=== PATIENT | female | born 2000 | race Caucasian/White ===

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

== ENCOUNTER 2021-02-07 23:23 | Emergency (ER) | payer MEDICAID ==
[~2021-02-07 23:23] MED LIST: NAPR-1071 PO
[2021-02-07 23:28] VITALS: BP 149/68
--- NOTE | 2021-02-07 23:39 | ED EENT ---
History of Present Illness General Chief Complaint: Dental Problems/Pain Stated Complaint: DENTAL PAIN Source: patient Exam Limitations: no limitations History of Present Illness Date Seen by Provider: Feb 07, 2021 Time Seen by Provider: 23:20 Initial Comments Patient presents ER by private conveyance from home with chief complaint of intense pain for over the past 2 to 3 days and swelling associated with a fractured tooth in her left upper premolar. She says she broke it about a week ago and a couple days ago started having pain from it. She called and has a dental appointment on Monday. She is not on antibiotics. She says she has to have an EpiPen for amoxicillin allergy. No other significant medical history. She tried Tylenol and ibuprofen unsuccessfully. Allergies and Home Medications Allergies Coded Allergies: amoxicillin (Verified Allergy, Unknown, 11/21/20) clavulanic acid (Verified Allergy, Unknown, 11/21/20) Home Medications Clindamycin HCl 150 Mg Capsule, 450 MG PO TID Prescribed by: VERNON SANCHEZ on 02/07/212341 Naproxen 500 Mg Tablet, 500 MG PO BID Prescribed by: HANK GIVENS on 11/21/202032 [viscous lidocaine] 2% TUBE, 5 ML TOP Q4H PRN for PAIN-BREAKTHROUGH Prescribed by: VERNON SANCHEZ on 02/07/212341 Patient Home Medication List Home Medication List Reviewed: Yes Review of Systems Review of Systems Constitutional: No chills, No diaphoresis Eyes: Denies Blindness, Denies Drainage Ears: Denies Dizziness, Denies Pain Nose: denies clots, denies congestion Mouth: see HPI Throat: denies pain, denies swelling, denies discharge All Other Systems Reviewed Negative Unless Noted: Yes Past Zinuygr-Dflezk-Lqsjnh Hx Patient Social History Alcohol Use: Denies Use Smoking Status: Never a Smoker 2nd Hand Smoke Exposure: No Recent Hopitalizations: No Seasonal Allergies Seasonal Allergies: No Past Medical History Surgeries: No Respiratory: No Cardiac: No Neurological: No Genitourinary: No Gastrointestinal: No Musculoskeletal: No Endocrine: No HEENT: No Cancer: No Psychosocial: No Integumentary: No Blood Disorders: No Physical Exam Vital Signs Vital Signs - First Documented 02/07/21 23:28 Temp 36.5 Pulse 65 Resp 16 B/P (MAP) 149/68 (95) Pulse Ox 100 O2 Delivery Room Air Height, Weight, BMI Height: '" Weight: lbs. oz. kg; 46.00 BMI Method: General Appearance: WD/WN, mild distress Eyes: bilateral eye normal inspection, bilateral eye PERRL, bilateral eye EOMI Ears: bilateral ear auricle normal, bilateral ear canal normal Nose: normal inspection; No active bleeding Mouth/Throat: other (Left upper premolar fracture with minimal gingival swelling and no pointing or obvious source of abscess to drain) Neck: full range of motion, normal inspection Cardiovascular: normal peripheral pulses, regular rate, rhythm Neurologic/Psychiatric: alert, oriented x 3 Progress/Results/Core Measures Results/Orders My Orders Orders - VERNON SANCHEZ Lidocaine 2% Viscous 15 Ml (Xylocaine Vi (02/07/21 23:45) Ketorolac Injection (Toradol Injection) (02/07/21 23:45) Medications Given in ED Current Medications Medications Dose Ordered Sig/Anirudh Route Start Time Stop Time Status Last Admin Dose Admin Ketorolac Tromethamine 60 mg ONCE ONCE IM 02/07/21 23:45 02/07/21 23:45 DC 02/07/21 23:36 60 MG Lidocaine HCl 5 ml ONCE ONCE PO 02/07/21 23:45 02/07/21 23:45 DC 02/07/21 23:36 5 ML Vital Signs/I&O 02/07/21 02/07/21 23:28 23:44 Temp 36.5 36.5 Pulse 65 65 Resp 16 16 B/P (MAP) 149/68 (95) Pulse Ox 100 100 O2 Delivery Room Air Room Air Progress Progress Note : Time: 23:35 Progress Note Toradol, viscous lidocaine, clindamycin. Departure Impression Primary Impression: Dental abscess Additional Impression: Fracture, tooth Qualified Codes: S02.5XXA - Fracture of tooth (traumatic), initial encounter for closed fracture Disposition: 01 HOME, SELF-CARE Condition: Stable Departure-Patient Inst. Decision time for Depature: 23:32 Referrals: WINTER KOLB MD (PCP/Family) Primary Care Physician Patient Instructions: Fractured Tooth, Dental Pain (DC) Add. Discharge Instructions: Apply warm compresses across her face to reduce swelling. Tylenol/acetaminophen 1000 mg every 8 hours as necessary for pain. Ibuprofen/Motrin 800 mg every 8 hours as necessary for pain. Viscous lidocaine 5 mL over some gauze applied directly to the tooth every 4 hours as necessary for pain control. Clindamycin 3 capsules 3 times a day with food for the next week to reduce swelling and pain. Expect to see some results by day 3 or 4 of antibiotics. Keep your follow-up appointment with the dentist. You may also use topical Orajel and other lujl-avl-tephkpd dental pain solutions. All discharge instructions reviewed with patient and/or family. Voiced understanding. Scripts Clindamycin HCl (Clindamycin HCl) 150 Mg Capsule 450 MG PO TID for 7 Days, #63 CAP 0 Refills Prov: VERNON SANCHEZ 02/07/21 [viscous lidocaine] 2% TUBE No Conflict Check 5 ML TOP Q4H PRN for PAIN-BREAKTHROUGH for 3 Days, #100 ML 0 Refills Prov: VERNON SANCHEZ 02/07/21 VERNON SANCHEZ Feb 07, 2021 23:39
[2021-02-07] MEDS ORDERED: viscous lidocaine TOP (23:42)
[2021-02-07] MEDS ORDERED: CLIN150C18 PO ×2 (23:42→23:46)
[2021-02-07] MEDS ORDERED: KETOROLAC 60 MG/2 ML VIAL IM ONE (23:45)
[2021-02-07] MEDS ORDERED: LIDOCAINE 2% VISCOUS 15 ML UDC PO ONE (23:45)
== END 2021-02-07 23:45 | disposition home or self-care (01) ==
LOC: EDUNIT# 23:23 → ER FS 23:25
DX: S02.5XXA Fracture of tooth (traumatic), initial encounter for closed fracture (principal); K04.7 Periapical abscess without sinus; Z88.1 Allergy status to other antibiotic agents; X58.XXXA Exposure to other specified factors, initial encounter
CPT/HCPCS: 99282

== ENCOUNTER 2021-10-29 09:33 | Emergency (ER) | payer MEDICAID ==
[~2021-10-29] VITALS: Ht 170.2 cm; Wt 127.0 kg
[~2021-10-29 09:33] MED LIST changes: +CLIN150C20 PO; +viscous lidocaine TOP
[2021-10-29 09:40] VITALS: BP 146/92
[2021-10-29] MEDS ORDERED: ONDANSETRON 4 MG/2 ML (SDV) Z0FRAN IVP STA (10:02)
[2021-10-29] MEDS ORDERED: ANTACID SUSP 30 ML UDC (MYLANTA) PO STA (10:02)
[2021-10-29] MEDS ORDERED: PANTOPRAZOLE 40 MG (PROTONIX) VIAL IV STA (10:02)
[2021-10-29] MEDS ORDERED: LIDOCAINE 2% VISCOUS 15 ML UDC PO STA (10:02)
[2021-10-29] MEDS ORDERED: NS IV 1000 ML 1,000 ML IV STA (10:02)
[2021-10-29] MEDS ORDERED: KETOROLAC 30 MG/ML VIAL IVP STA (10:02)
--- NOTE | 2021-10-29 10:10 | ED GI ---
General Chief Complaint: COVID19 Suspect/Confirmed Stated Complaint: VOMITING Source of Information: Patient History of Present Illness Date Seen by Provider: Oct 29, 2021 Time Seen by Provider: 09:37 Initial Comments 21-year-old female presenting with complaints of epigastric burning pain and nausea with vomiting. She states that she has severe reflux and heartburn that she recently started taking medication in the last month with nurse practitioner Priyanka VARGAS. She was also diagnosed with COVID on October 27 but has not had any acute symptoms with that. She had a close family member that was positive and that is what prompted her to get tested. She denies having any diarrhea or change in her bowels. She has not had any blood in her vomit or stools. She denies any pain or burning with urination. She has had no radiation of the epigastric pain. She states that she just has a burning pain that is sitting right below her chest in the middle of her stomach. She has a strong family history of heartburn and reflux. She has had no fever or chills. She denies any dizziness or lightheaded sensation. She denies any other chronic medical conditions. She does take control pills but denies any other medications. Timing/Duration: Getting Worse (Over a month but worse in the last few days) Severity/Quality: Severe Location: Epigastric Radiation: Epigastric Activities at Onset: Sleeping Modifying Factors: Improves With Antacids (Helps a little bit); Worsens With Eating, Worsens With Palpation Associated Symptoms: No Back Pain, No Chest Pain, No Diaphoresis, No Fever/Chills, No Fatigue, No Headache; Heartburn, Nausea/Vomiting (States she always has nausea and vomiting when she gets severe heartburn); No Rash, No Shortness of Air, No Swelling/Mass in Abdomen, No Syncope, No Weakness Allergies and Home Medications Allergies Coded Allergies: amoxicillin (Verified Allergy, Unknown, 11/21/20) clavulanic acid (Verified Allergy, Unknown, 11/21/20) Patient Home Medication List Home Medication List Reviewed: Yes Clindamycin HCl (Clindamycin HCl) 150 Mg Capsule, 450 MG PO TID Prescribed by: VERNON SANCHEZ on 02/07/212345 Naproxen (Naprosyn) 500 Mg Tablet, 500 MG PO BID Prescribed by: HANK GIVENS on 11/21/202032 Sucralfate (Sucralfate) 1 Gm Tablet, 1 GM PO ACHS Prescribed by: OSVALDO BEJARANO on 10/29/21 1056 [viscous lidocaine] 2% TUBE, 5 ML TOP Q4H PRN for PAIN-BREAKTHROUGH Prescribed by: VERNON SANCHEZ on 02/07/21 234 Review of Systems Review of Systems Constitutional: No chills, No dizziness, No fever EENTM: No Symptoms Reported Respiratory: No Symptoms Reported Cardiovascular: No Symptoms Reported Gastrointestinal: See HPI Genitourinary: No Symptoms Reported Musculoskeletal: no symptoms reported Skin: no symptoms reported Psychiatric/Neurological: No Symptoms Reported Endocrine: No Symptoms Reported Past Pjlfqvo-Yedpkp-Aqhpcz Hx Seasonal Allergies Seasonal Allergies: No Past Medical History Surgery/Hospitalization HX: GERD Surgeries: No Respiratory: No Cardiac: No Neurological: No Genitourinary: No Gastrointestinal: Yes Gastroesophageal Reflux Musculoskeletal: No Endocrine: No HEENT: No Cancer: No Psychosocial: No Integumentary: No Blood Disorders: No Physical Exam Vital Signs Vital Signs - First Documented 10/29/21 09:40 Temp 36.5 Pulse 105 Resp 16 B/P (MAP) 146/92 (110) Pulse Ox 100 O2 Delivery Room Air Capillary Refill : Height/Weight/BMI Height: '" Weight: lbs. oz. kg; 46.00 BMI Method: General Appearance: WD/WN, no apparent distress, obese HEENT: PERRL/EOMI, pharynx normal Neck: non-tender, full range of motion, supple, normal inspection Respiratory: chest non-tender, lungs clear, normal breath sounds, no respiratory distress, no accessory muscle use Cardiovascular: normal peripheral pulses, regular rate, rhythm Gastrointestinal: normal bowel sounds, soft, no pulsatile mass; No distended, No guarding, No rebound; tenderness (Epigastric) Rectal: deferred Extremities: normal range of motion, non-tender, normal capillary refill Neurologic/Psychiatric: alert, oriented x 3 Skin: normal color, warm/dry Images 1 - Localized pain in the epigastric area, worse with palpation Progress/Results/Core Measures Results/Orders Lab Results Laboratory Tests Test 10/29/21 09:50 Range/Units White Blood Count 9.0 4.3-11.0 10^3/uL Red Blood Count 4.65 3.80-5.11 10^6/uL Hemoglobin 12.2 11.5-16.0 g/dL Hematocrit 38 35-52 % Mean Corpuscular Volume 82 80-99 fL Mean Corpuscular Hemoglobin 26 25-34 pg Mean Corpuscular Hemoglobin Concent 32 32-36 g/dL Red Cell Distribution Width 14.7 H 10.0-14.5 % Platelet Count 494 H 130-400 10^3/uL Mean Platelet Volume 9.4 9.0-12.2 fL Immature Granulocyte % (Auto) 0 % Neutrophils (%) (Auto) 74 42-75 % Lymphocytes (%) (Auto) 19 12-44 % Monocytes (%) (Auto) 6 0-12 % Eosinophils (%) (Auto) 1 0-10 % Basophils (%) (Auto) 1 0-10 % Neutrophils # (Auto) 6.6 1.8-7.8 X 10^3 Lymphocytes # (Auto) 1.7 1.0-4.0 X 10^3 Monocytes # (Auto) 0.6 0.0-1.0 X 10^3 Eosinophils # (Auto) 0.1 0.0-0.3 10^3/uL Basophils # (Auto) 0.1 0.0-0.1 10^3/uL Immature Granulocyte # (Auto) 0.0 0.0-0.1 10^3/uL Sodium Level 136 135-145 MMOL/L Potassium Level 4.1 3.6-5.0 MMOL/L Chloride Level 100 98-107 MMOL/L Carbon Dioxide Level 24 21-32 MMOL/L Anion Gap 12 5-14 MMOL/L Blood Urea Nitrogen 6 L 7-18 MG/DL Creatinine 0.67 0.60-1.30 MG/DL Estimat Glomerular Filtration Rate 128 BUN/Creatinine Ratio 9 Glucose Level 102 70-105 MG/DL Calcium Level 9.5 8.5-10.1 MG/DL Corrected Calcium 9.3 8.5-10.1 MG/DL Total Bilirubin 0.2 0.1-1.0 MG/DL Aspartate Amino Transf (AST/SGOT) 16 5-34 U/L Alanine Aminotransferase (ALT/SGPT) 14 0-55 U/L Alkaline Phosphatase 92 40-136 U/L Total Protein 7.9 6.4-8.2 GM/DL Albumin 4.3 3.2-4.5 GM/DL Lipase 15 8-78 U/L My Orders Orders - OSVALDO BEJARANO MD Comprehensive Metabolic Panel (10/29/21 10:02) Lipase (10/29/21 10:02) Ed Iv/Invasive Line Start (10/29/21 10:02) Cbc With Automated Diff (10/29/21 10:02) Ondansetron Injection (Zofran Injectio (10/29/21 10:02) Ns Iv 1000 Ml (Sodium Chloride 0.9%) (10/29/21 10:02) Pantoprazole Injection (Protonix Injecti (10/29/21 10:02) Ketorolac Injection (Toradol Injection) (10/29/21 10:02) Lidocaine 2% Viscous 15 Ml (Xylocaine Vi (10/29/21 10:02) Antacid Suspension (Mylanta Suspension (10/29/21 10:02) Sucralfate Tablet (Carafate Tablet) (10/29/21 10:50) Vital Signs/I&O 10/29/21 09:40 Temp 36.5 Pulse 105 Resp 16 B/P (MAP) 146/92 (110) Pulse Ox 100 O2 Delivery Room Air Progress Progress Note #1: Progress Note Will obtain basic labs, including Lipase, and give IV fluid for hydration, Protonix for acid, Zofran since she was vomiting, Toradol for pain. After the Zofran to try and help prevent vomiting will give her GI cocktail. Progress Note #2: Progress Note Labs are all stable without acute significant abnormality. Lipase is normal. Patient reports improvement in her pain and symptoms since treatment. She still has some mild cramping type pain that she feels is secondary to recurrent vomiting. Will give a dose of Carafate here and discharge on this in addition to the meds she is taking at home from Nurse Practitioner Priyanka Vargas. Encouraged follow-up low-fat bland diet and check back through the clinic for continued work-up and treatment Departure Impression Primary Impression: Chronic GERD Additional Impressions: COVID-19 virus infection Nausea and vomiting in adult Epigastric abdominal pain Disposition: 01 HOME, SELF-CARE Condition: Improved Departure-Patient Inst. Decision time for Depature: 10:52 Referrals: WINTER KOLB MD (PCP/Family) Primary Care Physician Patient Instructions: Acid Reflux, Adult and Adolescent ED, COVID-19 ED, Gastr itis ED, Nausea and Vomiting, Adult ED, Ulcer and Gastritis Diet Add. Discharge Instructions: In addition to the medicine that you are taking from the clinic you could add on the Carafate or sucralfate to help with reducing the acid and neutralizing it. Try to follow low-fat and bland diet to help reduce the irritation to the lining of the stomach from acid. Try to avoid eating large meals within 3 to 4 hours of going to bed. Try to prop her elevate the head of your bed 30 to 45 degrees to help with reflux and heartburn. Follow-up through the clinic for continued concerns All discharge instructions reviewed with patient and/or family. Voiced understanding. Scripts Sucralfate (Sucralfate) 1 Gm Tablet 1 GM PO ACHS for GERD for 15 Days, #60 TAB 1 Refill Dissolve in 10 to 15 mL of water and drink as a slurry. Prov: OSVALDO BEJARANO MD 10/29/21 OSVALDO BEJARANO MD Oct 29, 2021 10:10
[2021-10-29 10:17] LABS: HEMATOCRIT 38 % (35-52); HEMOGLOBIN 12.2 g/dL (11.5-16.0); MEAN CORPUSCULAR HEMOGLOBIN 26 pg (25-34); MEAN CORPUSCULAR HGB CONC 32 g/dL (32-36); MEAN CORPUSCULAR VOLUME 82 fL (80-99)
[2021-10-29 10:18] LABS: BASOPHILS # (AUTO) 0.1 10^3/uL (0.0-0.1); BASOPHILS % (AUTO) 1 % (0-10); EOSINOPHILS # (AUTO) 0.1 10^3/uL (0.0-0.3); EOSINOPHILS % (AUTO) 1 % (0-10); LYMPHOCYTES # (AUTO) 1.7 X 10^3 (1.0-4.0); LYMPHOCYTES % (AUTO) 19 % (12-44); MEAN PLATELET VOLUME 9.4 fL (9.0-12.2); MONOCYTES # (AUTO) 0.6 X 10^3 (0.0-1.0); MONOCYTES % (AUTO) 6 % (0-12); NEUTROPHILS # (AUTO) 6.6 X 10^3 (1.8-7.8); NEUTROPHILS % (AUTO) 74 % (42-75); PLATELET COUNT 494 10^3/uL (130-400)
[2021-10-29 10:28] LABS: BILIRUBIN,TOTAL 0.2 MG/DL (0.1-1.0); CALCIUM 9.5 MG/DL (8.5-10.1); CREATININE SERUM 0.67 MG/DL (0.60-1.30); POTASSIUM 4.1 MMOL/L (3.6-5.0)
[2021-10-29 10:29] LABS: ALBUMIN 4.3 GM/DL (3.2-4.5); TOTAL PROTEIN 7.9 GM/DL (6.4-8.2)
[2021-10-29] MEDS ORDERED: SUCRALFATE 1 GM (CARAFATE) TAB PO STA (10:50)
[2021-10-29] MEDS ORDERED: SUCR1TAB PO (10:56)
== END 2021-10-29 11:15 | disposition home or self-care (01) ==
LOC: EDUNIT# 09:33 → ER FS 09:35
DX: K21.9 Gastro-esophageal reflux disease without esophagitis (principal); U07.1 COVID-19; R11.2 Nausea with vomiting, unspecified; E66.9 Obesity, unspecified; Z68.42 Body mass index [BMI] 45.0-49.9, adult
CPT/HCPCS: 36415; 80053; 83690; 85025

== ENCOUNTER → 2022-04-13 | Outpatient (CLI) | payer MEDICAID ==
[~2022-04-13] MED LIST changes: +SUCR1TAB PO
[2022-04-13 15:50] LABS: BASOPHILS # (AUTO) 0.1 10^3/uL (0.0-0.1); BASOPHILS % (AUTO) 1 % (0-10); EOSINOPHILS # (AUTO) 0.1 10^3/uL (0.0-0.3); EOSINOPHILS % (AUTO) 1 % (0-10); HEMATOCRIT 36 % (35-52); HEMOGLOBIN 11.6 g/dL (11.5-16.0); LYMPHOCYTES # (AUTO) 2.8 10^3/uL (1.0-4.0); LYMPHOCYTES % (AUTO) 22 % (12-44); MEAN CORPUSCULAR HEMOGLOBIN 27 pg (25-34); MEAN CORPUSCULAR HGB CONC 33 g/dL (32-36); MEAN CORPUSCULAR VOLUME 81 fL (80-99); MONOCYTES # (AUTO) 0.7 10^3/uL (0.0-1.0); MONOCYTES % (AUTO) 5 % (0-12); NEUTROPHILS # (AUTO) 8.7 10^3/uL (1.8-7.8); NEUTROPHILS % (AUTO) 70 % (42-75); PLATELET COUNT 487 10^3/uL (130-400); WHITE BLOOD COUNT 12.4 10^3/uL (4.3-11.0)
== END ==
LOC: LAB FS 15:29
PROVIDERS: ATTEND Registered Nurse Emergency
DX: F41.1 Generalized anxiety disorder (principal); D75.839 Thrombocytosis, unspecified; K21.9 Gastro-esophageal reflux disease without esophagitis
CPT/HCPCS: 36415; 85025

== ENCOUNTER 2022-12-31 19:58 | Emergency (ER) | payer MEDICAID ==
[~2022-12-31] VITALS: Ht 167.7 cm; Wt 138.0 kg
[2022-12-31 20:04] VITALS: BP 133/91
[2022-12-31] MEDS ORDERED: FAMO-119 PO (20:26)
[2022-12-31] MEDS ORDERED: PRD20T PO (20:26)
--- NOTE | 2022-12-31 20:26 | ED General ---
General Chief Complaint: Allergic Reaction Stated Complaint: ALLERGIC REACTION Nursing Triage Note: PT AMB TO FS 05 W C/O POSS ALLERGIC RXN TO HAY. REPORTS SHE WAS OUTSIDE AT 1100 TODAY, BEGAN NOTICING FACIAL SWELLING, REDNESS, AND ITCHING SX 1200. PT ALSO REPORTS ITCHY THROAT, DENIES PAIN. Source of Information: Patient Exam Limitations: No Limitations History of Present Illness Date Seen by Provider: Dec 31, 2022 Time Seen by Provider: 20:10 Initial Comments Patient is a 22-year-old female who presents with congestion, sore throat and facial rash after being exposed to hay. Patient has a known egg allergy. She took Tylenol and Benadryl prior to ED arrival with partial improvement. She reports throat itching but denies swelling, hoarseness shortness of breath or wheezing. No other acute symptoms or complaints. Timing/Duration: 12 Hours Severity: Mild Modifying Factors: improves with Other Allergies and Home Medications Allergies Coded Allergies: amoxicillin (Verified Allergy, Unknown, 11/21/20) clavulanic acid (Verified Allergy, Unknown, 11/21/20) Patient Home Medication List Home Medication List Reviewed: Yes Clindamycin HCl (Clindamycin HCl) 150 Mg Capsule, 450 MG PO TID Prescribed by: VERNON SANCHEZ on 02/07/212345 Naproxen (Naprosyn) 500 Mg Tablet, 500 MG PO BID Prescribed by: HANK GIVENS on 11/21/202032 Sucralfate (Sucralfate) 1 Gm Tablet, 1 GM PO ACHS Prescribed by: OSVALDO BEJARANO on 10/29/21 1056 [viscous lidocaine] 2% TUBE, 5 ML TOP Q4H PRN for PAIN-BREAKTHROUGH Prescribed by: VERNON SANCHEZ on 02/07/21 2342 Review of Systems Review of Systems Constitutional: see HPI EENTM: other (Mild pharyngeal erythema, blotchy facial rash) Skin: pruritus, rash Hematologic/Lymphatic: See HPI Past Djkyptj-Yanyyu-Czhmhi Hx Patient Social History Tobacco Use?: No Use of E-Cig and/or Vaping dev: No Substance use?: No Alcohol Use?: No Immunizations Up To Date First/Initial COVID19 Vaccinat: 2020 Second COVID19 Vaccination Guero: 2020 Third COVID19 Vaccination Date: NONE COVID19 Vaccine Chronic Disease Manager: MODERNA Seasonal Allergies Seasonal Allergies: No Past Medical History Surgery/Hospitalization HX: GERD Surgeries: No Respiratory: No Cardiac: No Neurological: No Last Menstrual Period: Dec 28, 2022 Genitourinary: No Gastrointestinal: Yes Gastroesophageal Reflux Musculoskeletal: No Endocrine: No HEENT: No Cancer: No Psychosocial: No Integumentary: No Blood Disorders: No Physical Exam Vital Signs Vital Signs - First Documented 12/31/22 20:04 Temp 36.4 Pulse 89 Resp 20 B/P (MAP) 133/91 (105) Pulse Ox 100 O2 Delivery Room Air Capillary Refill : Less Than 3 Seconds Height, Weight, BMI Height: '" Weight: lbs. oz. kg; 49.00 BMI Method: General Appearance: No Apparent Distress, WD/WN Eyes: Bilateral Eye Normal Inspection, Bilateral Eye PERRL, Bilateral Eye EOMI HEENT: Pharyngeal Erythema, Other (Blotchy facial rash, no airway swelling) Neck: Full Range of Motion, Supple, Other (No stridor) Respiratory: Chest Non Tender, Lungs Clear Cardiovascular: Regular Rate, Rhythm, No Edema Gastrointestinal: Soft Neurologic/Psychiatric: Oriented x3 Focused Exam Sepsis Stage: Ruled Out Progress/Results/Core Measures Suspected Sepsis SIRS Temperature: Pulse: 89 Respiratory Rate: 20 Blood Pressure 133 /91 Mean: 105 Results/Orders Vital Signs/I&O 12/31/22 20:04 Temp 36.4 Pulse 89 Resp 20 B/P (MAP) 133/91 (105) Pulse Ox 100 O2 Delivery Room Air Capillary Refill : Less Than 3 Seconds Blood Pressure Mean: 105 Departure Communication (Admissions) Hayfever. Prednisone, Pepcid given. Recommendations are supportive care with PCP follow-up as needed. Impression Primary Impression: Hayfever Disposition: 01 HOME, SELF-CARE Condition: Stable Departure-Patient Inst. Decision time for Depature: 20:24 Referrals: WINTER KOLB MD (PCP/Family) Primary Care Physician Patient Instructions: Seasonal Allergies ED Add. Discharge Instructions: You were evaluated in the emergency department for hay allergy. Please continue Benadryl and take newly prescribed medications as directed. Follow-up with your PCP as needed. Return to the ED if new or concerning symptoms All discharge instructions reviewed with patient and/or family. Voiced understanding. Scripts Famotidine (Pepcid) 20 Mg Tablet 20 MG PO BID, #6 TAB Prov: JACKSON KEMP DO 12/31/22 Prednisone (Prednisone) 20 Mg Tab 40 MG PO DAILY, #3 TAB 0 Refills Prov: JACKSON KEMP DO 12/31/22 JACKSON KEMP DO Dec 31, 2022 20:26
[2022-12-31] MEDS ORDERED: FAMOTIDINE 20 MG (PEPCID) TABLET PO ONE (20:30)
[2022-12-31] MEDS ORDERED: predniSONE 20 MG TAB PO ONE (20:30)
== END 2022-12-31 20:36 | disposition home or self-care (01) ==
LOC: EDUNIT# 19:58 → ER FS 20:02
DX: J30.1 Allergic rhinitis due to pollen (principal)
CPT/HCPCS: 99283

== ENCOUNTER → 2023-05-12 | Outpatient (CLI) | payer MEDICAID, OTHER ==
[~2023-05-12] MED LIST changes: +FAMO-119 PO; +PRD20T PO
--- NOTE | 2023-05-12 16:42 | Diagnostic Imaging Report ---
INDICATION: Dysfunctional uterine bleeding. EXAMINATION: Pelvic sonography performed with transabdominal and transvaginal views. FINDINGS: The uterus measures 7.7 x 4.2 x 5.5 cm and was anteverted. Endometrium measures 1.5 cm in thickness, this may vary with menstrual phase in a patient of this age. There is no myometrial mass. The ovaries are only well seen on transabdominal views, with the right measuring 4.0 x 1.8 x 2.1 cm and the left measuring 3.0 x 2.2 x 2.7 cm. There appears to be color flow in both ovaries. There is a trace of free fluid in the posterior cul-de-sac which is likely physiologic. IMPRESSION: Unremarkable pelvic sonography. Dictated by: Dictated on workstation # [id number]
== END ==
LOC: RAD 11:10
PROVIDERS: ATTEND Surgery
DX: N93.8 Other specified abnormal uterine and vaginal bleeding (principal)
CPT/HCPCS: 76830; 76856

== ENCOUNTER 2023-08-07 07:36 | Emergency (ER) | payer SELFPAY ==
[~2023-08-07] VITALS: Ht 172 cm; Wt 135.0 kg
[2023-08-07 07:50] VITALS: BP 137/74
[2023-08-07] MEDS ORDERED: ONDANSETRON 4 MG ORAL DISSOLVE TABLET PO STA (08:05)
[2023-08-07] MEDS ORDERED: ONDA4TAB11 SL (08:11)
[2023-08-07] MEDS ORDERED: PROM25TA14 PO (08:11)
--- NOTE | 2023-08-07 08:11 | ED GI ---
General Chief Complaint: Abdominal/GI Problems Stated Complaint: VOMITING; DIARRHEA; FEVER; BODY ACHES Nursing Triage Note: Patient has presented to ER with cc of vomiting and diarrhea during the night. She reports body aches and felt feverish this morning. Source of Information: Patient Exam Limitations: No Limitations History of Present Illness Date Seen by Provider: Aug 07, 2023 Time Seen by Provider: 07:40 Initial Comments 22-year-old female with no pertinent past medical history coming in due to 1 day of nonbloody nonbilious vomiting and nonbloody diarrhea. Started last night, has had some body aches and fever as well. Has not had anything to help with fever or general illness as of yet. Denies any severe abdominal pain, cough, chest pain, shortness of breath, rash, vaginal bleeding, vaginal discharge, dysuria, flank pain, or any other concerns. Allergies and Home Medications Allergies Coded Allergies: amoxicillin (Verified Allergy, Unknown, 11/21/20) clavulanic acid (Verified Allergy, Unknown, 11/21/20) Patient Home Medication List Home Medication List Reviewed: Yes Clindamycin HCl (Clindamycin HCl) 150 Mg Capsule, 450 MG PO TID Prescribed by: VERNON SANCHEZ on 02/07/212345 Famotidine (Pepcid) 20 Mg Tablet, 20 MG PO BID Prescribed by: JACKSON KEMP on 12/31/222025 Naproxen (Naprosyn) 500 Mg Tablet, 500 MG PO BID Prescribed by: HANK GIVENS on 11/21/202032 Ondansetron (Ondansetron Odt) 4 Mg Tab.rapdis, 4 MG SL Q6H PRN for NAUSEA/VOMITING-1ST LINE Prescribed by: LUIS RAI on 08/07/23810 Prednisone (Prednisone) 20 Mg Tab, 40 MG PO DAILY Prescribed by: JACKSON KEMP on 12/31/222025 Promethazine HCl (Promethazine Tablet) 25 Mg Tablet, 25 MG PO Q6H PRN for NAUSEA/VOMITING-2ND LINE Prescribed by: LUIS RAI on 08/07/23 0811 Sucralfate (Sucralfate) 1 Gm Tablet, 1 GM PO ACHS Prescribed by: OSVALDO BEJARANO on 10/29/21 1056 [viscous lidocaine] 2% TUBE, 5 ML TOP Q4H PRN for PAIN-BREAKTHROUGH Prescribed by: VERNON SANCHEZ on 02/07/21 1972 Review of Systems Review of Systems Constitutional: fever EENTM: No Symptoms Reported Respiratory: No Symptoms Reported Cardiovascular: No Symptoms Reported Gastrointestinal: See HPI Genitourinary: No Symptoms Reported Musculoskeletal: no symptoms reported Skin: no symptoms reported Psychiatric/Neurological: No Symptoms Reported Endocrine: No Symptoms Reported Hematologic/Lymphatic: No Symptoms Reported All Other Systems Reviewed Negative Unless Noted: Yes Past Kxxfrjo-Bdtaqy-Phyoya Hx Patient Social History Tobacco Use?: No Use of E-Cig and/or Vaping dev: No Substance use?: No Alcohol Use?: No Immunizations Up To Date First/Initial COVID19 Vaccinat: 2020 Second COVID19 Vaccination Guero: 2020 Third COVID19 Vaccination Date: NONE Seasonal Allergies Seasonal Allergies: No Past Medical History Surgery/Hospitalization HX: GERD Surgeries: No Respiratory: No Cardiac: No Neurological: No Genitourinary: No Gastrointestinal: Yes Gastroesophageal Reflux Musculoskeletal: No Endocrine: No HEENT: No Cancer: No Psychosocial: No Integumentary: No Blood Disorders: No Physical Exam Vital Signs Vital Signs - First Documented 08/07/23 07:50 Temp 36.8 Pulse 97 Resp 16 B/P (MAP) 137/74 (95) Pulse Ox 100 O2 Delivery Room Air Capillary Refill : Height/Weight/BMI Height: '" Weight: lbs. oz. kg; 45.00 BMI Method: General Appearance: WD/WN, no apparent distress HEENT: PERRL/EOMI, normal ENT inspection, pharynx normal Neck: non-tender, full range of motion, supple, normal inspection Respiratory: chest non-tender, lungs clear, normal breath sounds, no respiratory distress, no accessory muscle use Cardiovascular: regular rate, rhythm, no edema, no murmur Gastrointestinal: normal bowel sounds, non tender, soft; No distended, No guarding, No rebound Extremities: normal range of motion, non-tender, normal inspection, no pedal edema, no calf tenderness, normal capillary refill Back: normal inspection, no CVA tenderness Neurologic/Psychiatric: no motor/sensory deficits, alert, normal mood/affect Skin: normal color, warm/dry Progress/Results/Core Measures Results/Orders Lab Results Laboratory Tests Test 08/07/23 08:10 Range/Units Influenza Type A (RT-PCR) Not Detected Not Detecte Influenza Type B (RT-PCR) Not Detected Not Detecte SARS-CoV-2 RNA (RT-PCR) Not Detected Not Detecte My Orders Orders - LUIS RAI MD Influenza A And B By Pcr (08/07/23 08:05) Covid 19 Inhouse Test (08/07/23 08:05) Ondansetron Oral Dissolve Tab (Ondanset (08/07/23 08:05) Ketorolac Injection (Ketorolac Injection (08/07/23 08:15) Medications Given in ED Current Medications Medications Dose Ordered Sig/Anirudh Route Start Time Stop Time Status Last Admin Dose Admin Ketorolac Tromethamine 15 mg ONCE ONCE IVP 08/07/23 08:15 08/07/23 08:16 DC 08/07/23 08:12 15 MG Vital Signs/I&O 08/07/23 07:50 Temp 36.8 Pulse 97 Resp 16 B/P (MAP) 137/74 (95) Pulse Ox 100 O2 Delivery Room Air Blood Pressure Mean: 95 Progress Progress Note : Progress Note 22-year-old female with above history coming in due to vomiting and diarrhea. ABCs were intact and vitals were stable on presentation. Specifically, the patient is afebrile despite not having any antipyretics, and she is very well- appearing. Physical exam reassuring including a soft and nontender abdomen. She was given Zofran for nausea and IM Toradol for pain control with body aches. Flu and COVID testing sent and are negative. Prescriptions for the nausea medication sent. Otherwise she is once again well-appearing and I do not believe requires any advanced imaging or advanced labs at this point in time. She is also tolerating p.o. I believe she stable for discharge with outpatient follow-up. She was sent home with strict return precautions. Departure Impression Primary Impression: Vomiting and diarrhea Disposition: HOME, SELF-CARE Condition: Stable Departure-Patient Inst. Decision time for Depature: 08:51 Referrals: SAMANTHA ARNETT APRN (PCP) Primary Care Physician RAOUL ADAMS MD (Family) Primary Care Physician Patient Instructions: Nausea and Vomiting, Adult ED Add. Discharge Instructions: Your flu and COVID testing was negative. This is likely another virus going around the area. Nausea medicines were sent to your pharmacy. Take the Zofran first, if that does not work then you can take the Phenergan. Try to take frequent but small sips of fluids including Gatorade, water, Pedialyte, or things similar. If the diarrhea becomes extreme, you can take over the counter anti-diarrhea medicine. Do not worry about eating food until you are feeling better, you can eat things such as crackers and bland things until you are feeling better though. If you have a fever for 5 days straight, have severe unrelenting abdominal pain, or any other concerns, then please come back to the ER, you can also follow-up with community health here in [facility]. Scripts Promethazine HCl (Promethazine Tablet) 25 Mg Tablet 25 MG PO Q6H PRN for NAUSEA/VOMITING-2ND LINE for 4 Days, #16 TAB Prov: LUIS RAI MD 08/07/23 Ondansetron (Ondansetron Odt) 4 Mg Tab.rapdis 4 MG SL Q6H PRN for NAUSEA/VOMITING-1ST LINE for 5 Days, #20 TAB Prov: LUIS RAI MD 08/07/23 Work/School Note: Work Release Form Date Seen in the Emergency Department: Aug 07, 2023 Return to Work: Aug 09, 2023 Restrictions: Return-No Fever (24hrs), Return-No Vomiting(24hrs) LUIS RAI MD Aug 07, 2023 08:11
[2023-08-07] MEDS ORDERED: KETOROLAC INJ 15 MG/ML VIAL IVP ONE (08:15)
== END 2023-08-07 08:56 | disposition home or self-care (01) ==
LOC: EDUNIT# 07:36 → ER FS 07:39
DX: R11.2 Nausea with vomiting, unspecified (principal); R19.7 Diarrhea, unspecified; Z20.822 Contact with and (suspected) exposure to COVID-19
CPT/HCPCS: 87636; 96374; 99284

== ENCOUNTER 2023-09-15 21:59 | Emergency (ER) | payer SELFPAY ==
[~2023-09-15] VITALS: Ht 170.1 cm; Wt 136.7 kg
[~2023-09-15 21:59] MED LIST changes: +ONDA4TAB11 SL; +PROM25TA14 PO
[2023-09-15] MEDS ORDERED: ONDANSETRON 4 MG ORAL DISSOLVE TABLET SL STA (22:08)
[2023-09-15] MEDS ORDERED: PANT40TA52 PO (22:14)
[2023-09-15] MEDS ORDERED: LIDOCAINE 2% VISCOUS 15 ML UDC PO ONE (22:15)
[2023-09-15] MEDS ORDERED: PANTOPRAZOLE 40 MG TABLET PO ONE (22:15)
[2023-09-15] MEDS ORDERED: ANTACID SUSPENSION 30 ML UDC PO ONE (22:15)
--- NOTE | 2023-09-15 22:15 | ED GI ---
General Chief Complaint: Abdominal/GI Problems Stated Complaint: ACID REFLUX Source of Information: Patient Exam Limitations: No Limitations History of Present Illness Date Seen by Provider: Sep 15, 2023 Time Seen by Provider: 22:02 Initial Comments 22-year-old female with past medical history of GERD coming in due to epigastric burning pain.'s been worsening the past couple of days, worse with laying flat, better with sitting up. She has been on famotidine and Carafate. She is seeing a new doctor here in the next week, and is hoping to get a referral to a GI specialist. She had chips and salsa for dinner tonight. Denies any vaginal bleeding, vomiting, diarrhea, unusual vaginal discharge, or any other concerns. LMP was less than a month ago. Allergies and Home Medications Allergies Coded Allergies: amoxicillin (Verified Allergy, Unknown, 11/21/20) clavulanic acid (Verified Allergy, Unknown, 11/21/20) Patient Home Medication List Home Medication List Reviewed: Yes Clindamycin HCl (Clindamycin HCl) 150 Mg Capsule, 450 MG PO TID Prescribed by: VERNON SANCHEZ on 02/07/212345 Famotidine (Pepcid) 20 Mg Tablet, 20 MG PO BID Prescribed by: JACKSON KEMP on 12/31/222025 Naproxen (Naprosyn) 500 Mg Tablet, 500 MG PO BID Prescribed by: HANK GIVENS on 11/21/202032 Ondansetron (Ondansetron Odt) 4 Mg Tab.rapdis, 4 MG SL Q6H PRN for NAUSEA/VOMITING-1ST LINE Prescribed by: LUIS RAI on 08/07/23810 Pantoprazole Sodium (Pantoprazole Sodium) 40 Mg Tablet.dr, 40 MG PO DAILY Prescribed by: LUIS RAI on 09/15/232213 Prednisone (Prednisone) 20 Mg Tab, 40 MG PO DAILY Prescribed by: JACKSON KEMP on 12/31/222025 Promethazine HCl (Promethazine Tablet) 25 Mg Tablet, 25 MG PO Q6H PRN for NAUSEA/VOMITING-2ND LINE Prescribed by: LUIS RAI on 08/07/23 0811 Sucralfate (Sucralfate) 1 Gm Tablet, 1 GM PO ACHS Prescribed by: OSVALDO BEJARANO on 10/29/21 1056 [viscous lidocaine] 2% TUBE, 5 ML TOP Q4H PRN for PAIN-BREAKTHROUGH Prescribed by: VERNON SANCHEZ on 02/07/21 8592 Review of Systems Review of Systems Constitutional: No fever EENTM: No Symptoms Reported Respiratory: No Symptoms Reported Cardiovascular: No Symptoms Reported Gastrointestinal: See HPI Genitourinary: No Symptoms Reported Musculoskeletal: no symptoms reported Skin: no symptoms reported Psychiatric/Neurological: No Symptoms Reported Endocrine: No Symptoms Reported Hematologic/Lymphatic: No Symptoms Reported Past Okjiyov-Wezjno-Yqcldl Hx Patient Social History Tobacco Use?: No Substance use?: No Alcohol Use?: No Pt feels they are or have been: No Immunizations Up To Date First/Initial COVID19 Vaccinat: 2020 Second COVID19 Vaccination Guero: 2020 Third COVID19 Vaccination Date: NONE Seasonal Allergies Seasonal Allergies: No Past Medical History Surgery/Hospitalization HX: GERD Surgeries: No Respiratory: No Cardiac: No Neurological: No Genitourinary: No Gastrointestinal: Yes Gastroesophageal Reflux Musculoskeletal: No Endocrine: No HEENT: No Cancer: No Psychosocial: No Integumentary: No Blood Disorders: No Physical Exam Vital Signs Vital Signs - First Documented 09/15/23 22:02 Temp 36.3 Pulse 68 Resp 16 B/P (MAP) 139/90 (106) Pulse Ox 100 O2 Delivery Room Air Capillary Refill : Height/Weight/BMI Height: '" Weight: lbs. oz. kg; 45.00 BMI Method: General Appearance: WD/WN, no apparent distress HEENT: PERRL/EOMI, normal ENT inspection, pharynx normal Neck: non-tender, full range of motion, normal inspection Respiratory: chest non-tender, lungs clear, normal breath sounds, no respiratory distress, no accessory muscle use Cardiovascular: regular rate, rhythm, no edema, no murmur Gastrointestinal: normal bowel sounds, non tender, soft; No distended, No guarding, No rebound Extremities: normal range of motion, non-tender, normal inspection, no pedal edema, no calf tenderness, normal capillary refill Back: normal inspection, no CVA tenderness Neurologic/Psychiatric: no motor/sensory deficits, alert, normal mood/affect Skin: normal color, warm/dry Progress/Results/Core Measures Results/Orders My Orders Orders - LUIS RAI MD Ondansetron Oral Dissolve Tab (Ondanset (09/15/23 22:08) Lidocaine 2% Viscous 15 Ml (Xylocaine Vi (09/15/23 22:15) Antacid Suspension (Antacid Suspension (09/15/23 22:15) Pantoprazole Tablet (Pantoprazole Tablet (09/15/23 22:15) Medications Given in ED Current Medications Medications Dose Ordered Sig/Anirudh Route Start Time Stop Time Status Last Admin Dose Admin Al Hydrox/Mg Hydrox/Simethicone 30 ml ONCE ONCE PO 09/15/23 22:15 09/15/23 22:16 DC 09/15/23 22:25 30 ML Lidocaine HCl 15 ml ONCE ONCE PO 09/15/23 22:15 09/15/23 22:16 DC 09/15/23 22:25 15 ML Pantoprazole Sodium 40 mg ONCE ONCE PO 09/15/23 22:15 09/15/23 22:16 DC 09/15/23 22:25 40 MG Vital Signs/I&O 09/15/23 22:02 Temp 36.3 Pulse 68 Resp 16 B/P (MAP) 139/90 (106) Pulse Ox 100 O2 Delivery Room Air Progress Progress Note : Progress Note 22-year-old female with above history coming in due to epigastric burning. ABCs were intact and vitals were stable on presentation. Physical exam reassuring including a soft and nontender abdomen. She was given a GI cocktail with improvement in her symptoms. I will prescribe pantoprazole and have her follow- up with any doctor in the next week. Departure Impression Primary Impression: GERD (gastroesophageal reflux disease) Qualified Codes: K21.9 - Gastro-esophageal reflux disease without esophagitis Disposition: HOME, SELF-CARE Condition: Stable Departure-Patient Inst. Decision time for Depature: 23:05 Referrals: SAMANTHA ARNETT APRN (PCP) Primary Care Physician RAOUL ADAMS MD (Family) Primary Care Physician Patient Instructions: Acid Reflux, Adult and Adolescent ED Add. Discharge Instructions: Try to avoid foods that set off such as super acidic foods. Try to eat several hours before laying down to go to bed. We will change you from the famotidine to pantoprazole. Please follow-up with your regular doctor to see if he can get a referral to a GI specialist for potential upper GI scope. You can buy [id number] extra strength Maalox for times when your symptoms are very bad. Scripts Pantoprazole Sodium (Pantoprazole Sodium) 40 Mg Tablet. 40 MG PO DAILY for 30 Days, #30 TAB Prov: LUIS RAI MD 09/15/23 Work/School Note: Work Release Form Date Seen in the Emergency Department: Sep 15, 2023 Return to Work: Sep 17, 2023 Restrictions: No Restrictions LUIS RAI MD Sep 15, 2023 22:15
[2023-09-15 23:18] VITALS: BP 126/88
== END 2023-09-15 23:20 | disposition home or self-care (01) ==
LOC: EDUNIT# 21:59 → ER FS 22:00
DX: K21.9 Gastro-esophageal reflux disease without esophagitis (principal); Z79.899 Other long term (current) drug therapy
CPT/HCPCS: 99283